=== PATIENT | female | born 1970 | race American Indian/Alaskan Native ===

== ENCOUNTER 2019-04-04 16:36 | Emergency (ER) | payer BC, OTHER ==
--- NOTE | 2019-04-04 16:49 | Event Note ---
ED Screening Note Date of service: 04/04/19 Time: 16:46 ED Screening Note: This is a 48 y.o. F. that presents to the ER with upper abdominal pain radiating to left flank. Patient reports symptoms started this morning around 1000. She also reports headache and body aches. This initial assessment/diagnostic orders/clinical plan/treatment(s) is/are subject to change based on patients health status, clinical progression and re- assessment by fellow clinical providers in the ED. Further treatment and workup at subsequent clinical providers discretion. Patient/guardian urged not to elope from the ED as their condition may be serious if not clinically assessed and managed. Initial orders include: Labs and CT of abdomen and pelvis
[2019-04-04 17:11] LABS: Basophils # (Auto) 0.1 K/mm3 (0.0-0.1); Basophils % (Auto) 0.5 % (0.0-1.8); Eosinophils # (Auto) 0.2 K/mm3 (0.0-0.4); Eosinophils % (Auto) 1.4 % (0.0-4.3); Hematocrit 44.3 % (30.3-42.9); Hemoglobin 15.4 gm/dl (10.1-14.3); Lymphocytes # (Auto) 1.1 K/mm3 (1.2-5.4); Lymphocytes % (Auto) 10.1 % (13.4-35.0); Mean Corpuscular HGB Conc 35 % (30-34); Mean Corpuscular Volume 88 fl (79-97); Monocytes # (Auto) 0.4 K/mm3 (0.0-0.8); Monocytes % (Auto) 3.8 % (0.0-7.3); Platelet Count 419 K/mm3 (140-440); Red Blood Count 5.03 M/mm3 (3.65-5.03); Red Cell Distribution Width 14.5 % (13.2-15.2)
[2019-04-04 17:44] LABS: Bilirubin,Urine NEG (Negative); Blood,Urine NEG (Negative); Color,Urine Yellow (Yellow); Mucus,Urine FEW /HPF; Protein,Urine <15 mg/dL mg/dL (Negative)
[2019-04-04 17:50] LABS: Alanine Aminotransferase 13 units/L (7-56); Albumin 4.1 g/dL (3.9-5); BUN/Creatinine Ratio 17; Blood Urea Nitrogen 12 mg/dL (7-17); Calcium 8.8 mg/dL (8.4-10.2); Hemolysis Index 30
[2019-04-04] MEDS ORDERED: fentaNYL 100 MCG/2 ML INJ IV ONE (18:38)
[2019-04-04] MEDS ORDERED: SODIUM CHLORIDE 0.9% 1000 ML 1,000 ML IV ONE (18:38)
[2019-04-04] MEDS ORDERED: ONDANSETRON 4 MG/2 ML INJ IV ONE (18:38)
[2019-04-04 18:46] LABS: HCG Qualitative,Urine Negative (Negative)
--- NOTE | 2019-04-04 18:46 | Emergency Department Report ---
HPI - General Chief Complaint: Abdominal Pain Time Seen by Provider: 04/04/19 16:46 - HPI HPI: Room 39 The pt is a 48 yo F p/w a cc of Abd pain. The pt states she awakened this AM feeling "hungry." she states she then developed ELEONORA abd pain that has been stabbing in nature and intermittent. Pt states she developed n/v p eating an apple and water. no diarrhea. pt denies dysuria or hematuria. Pt gives her pain a score of 8.5/10 ED Past Medical Hx - Past Medical History Previous Medical History?: Yes Hx Hypertension: Yes Hx Diabetes: Yes Hx of Cancer: Yes (Endometrial CA dx'd 2014. no interventio) Additional medical history: gastroparesis - Surgical History Past Surgical History?: Yes - Family History Family history: no significant - Social History Smoking Status: Former Smoker (none x 1 month) Substance Use Type: Alcohol (occ), Marijuana - Medications Home Medications: Home Medications Medication Instructions Recorded Confirmed Last Taken Type HYDROcodone/APAP 5-325 [[place] 1 each PO Q6HR PRN #20 tablet 10/13/15 Unknown Rx 5/325] Ibuprofen [Motrin] 600 mg PO Q8H PRN #40 tablet 10/13/15 Unknown Rx Metoclopramide [Reglan] 10 mg PO ACHS PRN #30 tablet 04/04/19 Unknown Rx traMADol [Ultram 50 MG tab] 50 mg PO Q6HR PRN #20 tablet 04/04/19 Unknown Rx ED Review of Systems ROS: Stated complaint: VOMITING/SEVERE PAIN/WEAKNESS/HEADAHCHE Other details as noted in HPI Constitutional: fever (?) Eyes: denies: eye pain ENT: denies: throat pain Respiratory: no symptoms reported Cardiovascular: denies: chest pain Endocrine: no symptoms reported Gastrointestinal: abdominal pain, nausea, vomiting. denies: diarrhea Genitourinary: denies: dysuria, hematuria Musculoskeletal: denies: back pain Neurological: denies: headache Physical Exam - Physical Exam Vital Signs: Vital Signs 04/04/19 16:41 Temperature 98.7 F Pulse Rate 104 H Respiratory 16 Rate Blood Pressure 177/102 O2 Sat by Pulse 98 Oximetry Physical Exam: GEN: WD WN F lying on stretcher in NAD HEENT: NCAT, EOMI NECK:Trachea midline, no stridor CV: rrr no m/r/g Pulm: CTAB. no resp distress ABD: s/nd +BS. TTP in RUQ, ELEONORA and LUQ, greatest in LUQ Neuro: GCS 15 SKIN: no diaphoresis MS: no evidence of acute injury ED Course Vital Signs 04/04/19 16:41 Temperature 98.7 F Pulse Rate 104 H Respiratory 16 Rate Blood Pressure 177/102 O2 Sat by Pulse 98 Oximetry ED Medical Decision Making - Lab Data Result diagrams: 04/04/19 16:56 04/04/19 16:56 Laboratory Tests 04/04/19 04/04/19 04/04/19 16:56 16:56 17:04 WBC 11.2 H RBC 5.03 Hgb 15.4 H Hct 44.3 H MCV 88 MCH 31 MCHC 35 H RDW 14.5 Plt Count 419 Lymph % (Auto) 10.1 L [place] % (Auto) 3.8 Eos % (Auto) 1.4 Baso % (Auto) 0.5 Lymph # 1.1 L [place] # 0.4 Eos # 0.2 Baso # 0.1 Seg Neutrophils % 84.2 H Seg Neutrophils # 9.5 H Sodium 134 L Potassium 4.4 Chloride 98.8 Carbon Dioxide 19 L Anion Gap 21 BUN 12 Creatinine 0.7 Estimated GFR > 60 BUN/Creatinine Ratio 17 Glucose 288 H Calcium 8.8 Total Bilirubin 0.50 AST 11 ALT 13 Alkaline Phosphatase 95 Total Protein 8.0 Albumin 4.1 Albumin/Globulin Ratio 1.1 Lipase 15 Urine Color Yellow Urine Turbidity Clear Urine pH 6.0 Ur Specific [place] 1.021 Urine Protein <15 mg/dl Urine Glucose (UA) 150 Urine Ketones Tr Urine Blood Neg Urine Nitrite Neg Urine Bilirubin Neg Urine Urobilinogen 2.0 Ur Leukocyte Esterase Neg Urine WBC (Auto) 2.0 Urine RBC (Auto) 3.0 U Epithel Cells (Auto) 1.0 Urine Mucus Few Urine HCG, Qual 04/04/19 17:04 WBC RBC Hgb Hct MCV MCH MCHC RDW Plt Count Lymph % (Auto) [place] % (Auto) Eos % (Auto) Baso % (Auto) Lymph # [place] # Eos # Baso # Seg Neutrophils % Seg Neutrophils # Sodium Potassium Chloride Carbon Dioxide Anion Gap BUN Creatinine Estimated GFR BUN/Creatinine Ratio Glucose Calcium Total Bilirubin AST ALT Alkaline Phosphatase Total Protein Albumin Albumin/Globulin Ratio Lipase Urine Color Urine Turbidity Urine pH Ur Specific [place] Urine Protein Urine Glucose (UA) Urine Ketones Urine Blood Urine Nitrite Urine Bilirubin Urine Urobilinogen Ur Leukocyte Esterase Urine WBC (Auto) Urine RBC (Auto) U Epithel Cells (Auto) Urine Mucus Urine HCG, Qual Negative - Radiology Data Radiology results: report reviewed (ct abd/pelvis), image reviewed (CT abd/pelvis) - Differential Diagnosis gastroparesis, pancreatitis Critical care attestation.: If time is entered above; I have spent that time in minutes in the direct care of this critically ill patient, excluding procedure time. ED Disposition Clinical Impression: Acute abdominal pain, Gastroparesis Disposition: - TO HOME OR SELFCARE Is pt being admited?: No Does the pt Need Aspirin: No Condition: Stable Instructions: Abdominal Pain (ED) Prescriptions: Metoclopramide [Reglan] 10 mg PO ACHS PRN #30 tablet PRN Reason: Nausea traMADol [Ultram 50 MG tab] 50 mg PO Q6HR PRN #20 tablet PRN Reason: Pain Referrals: PRIMARY CARE, [Primary Care Provider] - 3-5 Days TYE ARCHIBALD MD [Staff Physician] - 3-5 Days (Dr Archibald is a pharmacy services representative. Please follow up with him for further evaluation)
--- NOTE | 2019-04-04 20:03 | Cat Scan Report ---
CT ABDOMEN AND PELVIS WITH CONTRAST HISTORY: upper abdominal pain. COMPARISON: None. TECHNIQUE: CT images of the abdomen and pelvis were obtained following administration of intravenous contrast. All CT scans at this location are performed using CT dose reduction for ALARA by means of automated exposure control. CONTRAST: 100 ml of intravenous contrast administered. FINDINGS: Lungs/bones: Lung bases are clear. There are degenerative changes within the spine and pelvis with n o acute osseous abnormality identified. There is bony sclerosis along the ilial side of the right gre ater than left SI joints which can be seen with sacroiliitis. No erosive changes. Abdomen/pelvis: There is hepatic steatosis. The gallbladder contains multiple cholesterol gallstones with no gross wall thickening or pericholecystic fluid/stranding. No intrahepatic or extrahepatic bi liary ductal dilatation. The spleen, pancreas, adrenals, kidneys, and proximal GI tract appear unrema rkable. Urinary bladder is unremarkable. There is a septate uterus with mildly prominent endometrial fluid. T here is also a small simple right ovarian cyst. No significant pelvic free fluid. No acute colonic ab normality identified. Terminal ileum and appendix appear normal. IMPRESSION: 1. No acute abnormality identified. 2. Incidental findings as above. Signer Name: Lacho Herrera MD Signed: 04/04/2019 7:58 PM Workstation Name: [id number]
[2019-04-04 21:40] VITALS: BP 155/89
== END 2019-04-04 21:40 | disposition home or self-care (01) ==
LOC: ED 16:36
DX: K31.84 Gastroparesis (principal); I10 Essential (primary) hypertension; E11.9 Type 2 diabetes mellitus without complications; F12.10 Cannabis abuse, uncomplicated; Z87.891 Personal history of nicotine dependence; Z98.890 Other specified postprocedural states; Z88.5 Allergy status to narcotic agent
CPT/HCPCS: 36415; 74177; 80053; 81001; 81025; 83690; 85025; J2405; J3010; J7030; Q9967; 96361; 96374; 96375